=== PATIENT | female | born 1980 | race Caucasian/White ===

== ENCOUNTER → 2019-08-11 07:39 | Outpatient (CLI) | payer OTHER, SELFPAY ==
[2019-08-11 07:21] VITALS: BMI 26.6
--- NOTE | 2019-08-11 07:40 | RAD_ITS ---
STUDY: X-RAY - RIGHT SHOULDER REASON FOR EXAM: Pain after lifting heavy object. TECHNIQUE: 4 view(s) of the shoulder. COMPARISON: None. FINDINGS: Normal glenohumeral articulation. Normal acromioclavicular joint. Normal acromion. Normal humeral head and visualized proximal humerus. The soft tissue structures are unremarkable. Normal visualized pulmonary apex. RAD/Shoulder min 2 Views IMPRESSION: Normal x-ray examination of the right shoulder. Electronically Signed: Kevin Rondon MD at 8:24 EST Tel , Service support ,
== END ==
LOC: HPRAD 07:39
PROVIDERS: Referring Provider Physician Assistant Surgical; Visit Provider Physician Assistant Surgical
DX: S46.911A Strain of unspecified muscle, fascia and tendon at shoulder and upper arm level, right arm, initial encounter (principal); X58.XXXA Exposure to other specified factors, initial encounter; Y93.9 Activity, unspecified; Y92.9 Unspecified place or not applicable; Y99.9 Unspecified external cause status
CPT/HCPCS: 73030